=== PATIENT | male | born 1960 | race African-American/Black ===

== ENCOUNTER 2016-09-17 15:08 | Emergency (ER) | payer OTHER ==
[~2016-09-17] VITALS: Ht 182.9 cm; Wt 100.0 kg
[~2016-09-17 15:08] MED LIST: RANI150T PO; ZOFR4TAB3 PO
[2016-09-17 15:10] VITALS: BP 134/79; PULSE 91; RESP 18; TEMP 98.4; O2SAT 99
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
[2016-09-17] MEDS ORDERED: ROBA750T PO (15:56)
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
== END 2016-09-17 16:26 | disposition home or self-care (01) ==
LOC: NEPK 15:08
DX: M54.5 Low back pain (principal); Z79.899 Other long term (current) drug therapy; V49.40XA Driver injured in collision with unspecified motor vehicles in traffic accident, initial encounter
CPT/HCPCS: 99283